=== PATIENT | female | born 1995 | race Caucasian/White ===

== ENCOUNTER 2019-10-05 21:02 | Emergency (ER) | payer OTHER ==
[~2019-10-05] VITALS: Ht 165.1 cm; Wt 45.4 kg
[2019-10-05] MEDS ORDERED: CLONAZEPAM0.5 M1 (21:08)
== END 2019-10-05 23:16 | disposition home or self-care (01) ==
LOC: ER 21:02
DX: R11.2 Nausea with vomiting, unspecified (principal)